=== PATIENT | female | born 1960 | race Two or more races ===

== ENCOUNTER 2016-04-24 21:57 | Emergency (ER) | payer BC, OTHER ==
[2016-04-24] MEDS ORDERED: ONDANSETRON 4 MG TAB.RAPDIS PO ONE (22:04)
--- NOTE | 2016-04-24 22:16 | ER Document Report ---
ED Medical Screen (RME) - General Stated Complaint: VOMITING Notes: dizziness with vomiting sudden onset this evening PMH: diabetes type 2, lantus 60u as well as PO medication I have greeted and performed a rapid initial assessment of this patient. A comprehensive ED assessment and evaluation of the patient, analysis of test results and completion of the medical decision making process will be conducted by additional ED providers. - Related Data Allergies/Adverse Reactions: No Known Allergies Allergy (Unverified 12/02/13 09:54) Past Medical History - Past Medical History Cardiac Medical History: Reports: Hx Hypertension - ON LISINOPRIL Denies: Hx Coronary Artery Disease, Hx Heart Attack Pulmonary Medical History: Denies: Hx Asthma, Hx Bronchitis, Hx COPD, Hx Pneumonia Neurological Medical History: Denies: Hx Cerebrovascular Accident, Hx Seizures Musculoskeltal Medical History: Denies Hx Arthritis - Immunizations Hx Diphtheria, Pertussis, Tetanus Vaccination: Yes
[2016-04-25 01:08] LABS: ABSOLUTE BASOPHILS # (AUTO) 0.1 10^3/uL (0.0-0.2); ABSOLUTE EOSINOPHILS # (AUTO) 0.1 10^3/uL (0.0-0.6); ABSOLUTE LYMPHOCYTES (AUTO) 2.2 10^3/uL (0.5-4.7); ABSOLUTE MONOCYTES (AUTO) 0.8 10^3/uL (0.1-1.4); ABSOLUTE NEUT (AUTO) 14.4 10^3/uL (1.7-8.2); BASOPHILS % (AUTO) 0.5 % (0-2); EOSINOPHILS % (AUTO) 0.6 % (0-6); HEMATOCRIT 45.8 % (36.0-47.0); HEMOGLOBIN 14.5 g/dL (12.0-15.5); HGB HCT DIFFERENCE -2.3; LYMPHOCYTES % (AUTO) 12.6 % (13-45); MEAN CORPUSCULAR HEMOGLOBIN 26.4 pg (27.0-33.4); MEAN CORPUSCULAR HGB CONC 31.7 g/dL (32.0-36.0); MEAN CORPUSCULAR VOLUME 83 fl (80-97); MONOCYTES % (AUTO) 4.6 % (3-13); RED CELL DISTRIBUTION WIDTH 12.9 % (11.5-14.0); SEGMENTED NEUTROPHILS % (AUTO) 81.7 % (42-78); WHITE BLOOD COUNT 17.7 10^3/uL (4.0-10.5)
[2016-04-25 01:19] LABS: ALANINE AMINOTRANSFERASE 61 U/L (9-52); ALBUMIN 3.5 g/dL (3.5-5.0); ALKALINE PHOSPHATASE 40 U/L (38-126); ANION GAP 15 (5-19); ASPARTATE AMINO TRANSFERASE 38 U/L (14-36); BILIRUBIN,TOTAL 0.3 mg/dL (0.2-1.3); BLOOD UREA NITROGEN 25 mg/dL (7-20); CALCIUM 9.8 mg/dL (8.4-10.2); CARBON DIOXIDE 24 mmol/L (22-30); CHLORIDE 103 mmol/L (98-107); CREATINE KINASE 170 U/L (30-135); CREATININE RESULT 0.72 mg/dL (0.52-1.25); GLUCOSE 234 mg/dL (75-110); POTASSIUM 3.9 mmol/L (3.6-5.0); SODIUM 142.2 mmol/L (137-145); TOTAL PROTEIN 6.4 g/dL (6.3-8.2)
[2016-04-25 01:24] LABS: APPEARANCE,URINE CLOUDY; BILIRUBIN,URINE NEGATIVE (NEGATIVE); GLUCOSE, URINE >=500 mg/dL (NEGATIVE); KETONES,URINE TRACE mg/dL (NEGATIVE); LEUKOCYTE ESTERASE,URINE MODERATE (NEGATIVE); NITRITE,URINE POSITIVE (NEGATIVE); PROTEIN,URINE 30 mg/dL (NEGATIVE); URINE SPECIFIC GRAVITY 1.027; UROBILINOGEN,URINE NEGATIVE mg/dL (<2.0)
[2016-04-25 01:37] LABS: TROPONIN I < 0.012 ng/mL
[2016-04-25] MEDS ORDERED: CEPHALEXIN 500 MG CAPSULE PO ONE (02:17)
--- NOTE | 2016-04-25 02:35 | ER Document Report ---
ED Dizziness/Weakness - General Mode of Arrival: Ambulatory Information source: Patient TRAVEL OUTSIDE OF THE [place] IN LAST 30 DAYS: No - HPI Patient complains to provider of: Dizziness Onset: Just prior to arrival Onset/Duration: Sudden Associated symptoms: Dizzy, Almost fainted, Lightheaded, Nausea, Sweating, Weak all over. denies: Chest pain, Diarrhea, Fainted, Short of breath, Vomiting <GILDARDO FRYE - Last Filed: 04/25/16 02:23> <CITLALLI LYNCH - Last Filed: 04/25/16 03:43> - General Chief Complaint: Dizziness Stated Complaint: VOMITING Notes: Patient is a 56-year-old female presenting to the emergency department concerned of dizziness just prior to arrival to the emergency department. Patient states when she got off work here at the [employer], she went home and ate dinner around 6 PM. Patient states after that she didn't eat because she had to take her insulin. Later on, patient states that she had approximately 3 boiled peanuts. Patient states that after this, she began sweating and became dizzy, weak, itchy, and nauseous. Patient denies vomiting, fever, syncope, diarrhea, cough, sore throat, dysuria/incontinence, congestion, shortness of breath, or any difficulty breathing. Patient has a history of hypertension and diabetes. Patient states that the fluids given to her via IV have helped. (GILDARDO FRYE) - Related Data Allergies/Adverse Reactions: No Known Allergies Allergy (Unverified 12/02/13 09:54) Past Medical History - General Information source: Patient - Social History Smoking Status: Unknown if Ever Smoked Occupation: [employer] Family History: Reviewed & Not Pertinent Patient has suicidal ideation: No Patient has homicidal ideation: No - Past Medical History Cardiac Medical History: Reports: Hx Hypertension - ON LISINOPRIL Endocrine Medical History: Reports: Hx Diabetes Mellitus Type 2 - Immunizations Hx Diphtheria, Pertussis, Tetanus Vaccination: Yes <GILDARDO FRYE - Last Filed: 04/25/16 02:23> Review of Systems - Review of Systems Constitutional: See HPI, Diaphoresis, Weakness. denies: Fever EENT: No symptoms reported. denies: Nose congestion, Throat pain Cardiovascular: See HPI, Dizziness, Lightheaded. denies: Chest pain, Syncope Respiratory: No symptoms reported. denies: Cough, Short of breath Gastrointestinal: No symptoms reported. denies: Abdominal pain, Diarrhea, Nausea, Vomiting Genitourinary: No symptoms reported. denies: Burning, Dysuria, Hematuria, Pain Female Genitourinary: No symptoms reported Musculoskeletal: No symptoms reported Skin: See HPI, Other - Itchy Hematologic/Lymphatic: No symptoms reported Neurological/Psychological: No symptoms reported -: Yes All other systems reviewed and negative <GILDARDO FRYE - Last Filed: 04/25/16 02:23> Physical Exam - Vital signs Interpretation: Hypertensive, Tachycardic - General General appearance: Appears well, Alert - HEENT Head: Normocephalic, Atraumatic Eyes: Normal Pupils: PERRL - Respiratory Respiratory status: No respiratory distress Chest status: Nontender Breath sounds: Normal Chest palpation: Normal - Cardiovascular Rhythm: Regular Heart sounds: Normal auscultation Murmur: No - Abdominal Inspection: Normal Distension: No distension Bowel sounds: Normal Tenderness: Nontender Organomegaly: No organomegaly - Back Back: Normal, Nontender - Extremities General upper extremity: Normal inspection, Nontender, Normal color, Normal ROM , Normal temperature General lower extremity: Normal inspection, Nontender, Normal color, Normal ROM , Normal temperature, Normal weight bearing - Neurological Neuro grossly intact: Yes Cognition: Normal Orientation: AAOx4 Carbon Coma Scale Eye Opening: Spontaneous Chavo Coma Scale Verbal: Oriented Carbon Coma Scale Motor: Obeys Commands Chavo Coma Scale Total: 15 Speech: Normal - Psychological Associated symptoms: Normal affect, Normal mood - Skin Skin Temperature: Warm Skin Moisture: Dry Skin Color: Normal <GILDARDO FRYE - Last Filed: 04/25/16 02:23> Course - Laboratory Result Diagrams: 04/25/16 00:54 04/25/16 00:54 <GILDARDO FRYE - Last Filed: 04/25/16 02:23> - Laboratory Result Diagrams: 04/25/16 00:54 04/25/16 00:54 <CITLALLI LYNCH - Last Filed: 04/25/16 03:43> - Re-evaluation Re-evalutation: 04/25/16 03:30 Medical decision making: Patient persists emergency department describing what could've been an allergic reaction home this evening. There is no shortness of breath, chest pain or difficulty breathing. There is no rash or hives over the patient did have lightheadedness and nausea, vomiting and itching. No fever. The symptoms resolved on arrival in the emergency department. Patient is currently asymptomatic. The labs indicate patient has urinary tract infection although she is asymptomatic. We will treat this as she is a diabetic. The patient's lipase was elevated. She denies h/oi pancreatitis or alcohol use. She has no abdominal pain. Her abdominal exam is unremarkable. She is tolerating by mouth's without any problems. I have explained this to her. She can have her labs redrawn by her primary physician to recheck this. She does have an elevated white count with left shift but this is likely to demargination secondary to the vomiting/episode. The patient did not check her glucose at the time of the reaction and it is possible that she had been a little hypoglycemic at the time of the reaction and incidentally was eating the peanuts when the reaction happened and she indicates she completely resolved within 30 minutes of eating the peanuts. We will recommend that she avoid peanuts in the future in the event this was an allergic reaction. Recommending that she take antibiotics as prescribed for the UTI as she is diabetic. I have encouraged her to regularly check her blood sugar especially while taking antibiotics for infection. I have asked her to follow up with her primary physician either tomorrow or the next day. Patient indicates she feels improved and is ready for discharge. Return precautions advised. 04/25/16 03:33 (CITLALLI LYNCH) - Vital Signs Vital signs: Temp Pulse Resp BP Pulse Ox 97.8 F 114 H 16 137/104 H 96 04/24/16 22:07 04/24/16 22:07 04/24/16 22:07 04/24/16 22:07 04/24/16 22:07 (GILDARDO FRYE) (CITLALLI LYNCH) - Laboratory Laboratory results interpreted by me: 04/24/16 04/25/16 04/25/16 22:15 00:54 00:54 WBC 17.7 H RBC 5.50 H MCH 26.4 L MCHC 31.7 L Seg Neutrophils % 81.7 H Lymphocytes % 12.6 L Absolute Neutrophils 14.4 H BUN 25 H Glucose 234 H POC Glucose 197 H AST 38 H ALT 61 H Creatine Kinase 170 H Lipase 605.0 H Urine Protein Urine Glucose (UA) Urine Ketones Urine Nitrite Ur Leukocyte Esterase Urine Ascorbic Acid 04/25/16 00:54 WBC RBC MCH MCHC Seg Neutrophils % Lymphocytes % Absolute Neutrophils BUN Glucose POC Glucose AST ALT Creatine Kinase Lipase Urine Protein 30 H Urine Glucose (UA) >=500 H Urine Ketones TRACE H Urine Nitrite POSITIVE H Ur Leukocyte Esterase MODERATE H Urine Ascorbic Acid 40 H (GILDARDO FRYE) (CITLALLI LYNCH) - EKG Interpretation by Me Additional EKG results interpreted by me: 04/25/16 03:42 EKG: Heart rate 93, normal sinus rhythm, normal axis, normal intervals, no ST elevations, as interpreted by me. Compared with EKG of 12/02/13, no significant change. (CITLALLI LYNCH) Discharge <GILDARDO FRYE - Last Filed: 04/25/16 02:23> <CITLALLI LYNCH - Last Filed: 04/25/16 03:43> - Discharge Clinical Impression: Allergic reaction Qualifiers: Encounter type: initial encounter Qualified Code(s): T78.40XA - Allergy, unspecified, initial encounter Urinary tract infection Qualifiers: Urinary tract infection type: site unspecified Hematuria presence: without hematuria Qualified Code(s): N39.0 - Urinary tract infection, site not specified Condition: Stable Disposition: HOME, SELF-CARE Instructions: Urinary Tract Infection, Child ([facility]) Additional Instructions: Drink plenty of fluids to stay well hydrated. Take antibiotics as prescribed for UTI. We suspect that you may have had an allergic reaction tonight yet on arrival in the emergency department your symptoms had resolved. Avoid boiled nuts as this appears to be what precipitated this reaction. Take Benadryl for any recurrent itching. Given that you have diabetes, it is important that you check a blood sugar frequently while you are taking antibiotics and being treated for infection. Alternate Tylenol and Motrin for fevers greater than 100.3. [place]. Return for chest pain, difficulty breathing, vomiting so not keep down fluids, fever not controlled by Tylenol or Motrin, or any other worsening or concerning symptoms. Prescriptions: Cephalexin Monohydrate [Keflex 500 mg Capsule] 500 mg PO Q6H 5 Days Scribe Attestation: 04/25/16 03:40 I personally performed the services described in the documentation, reviewed and edited the documentation which was dictated to the scribe in my presence, and it accurately records my words and actions. (CITLALLI LYNCH) Scribe Documentation <GILDARDO FRYE - Last Filed: 04/25/16 02:23> <CITLALLI LYNCH - Last Filed: 04/25/16 03:43> - Scribe Written by Scribe:: CITLALLI LYNCH MD, SCRIBE 04/25/16 0317 Acting as scribe for: Dr. Williamson (GILDARDO FRYE) (CITLALLI LYNCH)
[2016-04-25 04:17] VITALS: BP 108/77
--- NOTE | 2016-04-25 08:01 | EKG REPORT ---
SEVERITY:- ABNORMAL ECG - SINUS RHYTHM ABNRM R PROG, CONSIDER ASMI OR LEAD PLACEMENT : Confirmed by: Hernan Crystal MD 25-Apr-2016 08:01:22
== END 2016-04-25 04:15 | disposition home or self-care (01) ==
LOC: ER 21:57
DX: T78.40XA Allergy, unspecified, initial encounter (principal); N39.0 Urinary tract infection, site not specified; R61 Generalized hyperhidrosis; R53.1 Weakness; R11.10 Vomiting, unspecified; R42 Dizziness and giddiness; X58.XXXA Exposure to other specified factors, initial encounter; E11.9 Type 2 diabetes mellitus without complications; I10 Essential (primary) hypertension; Z79.4 Long term (current) use of insulin
CPT/HCPCS: 36415; 71010; 80053; 81001; 82550; 82553; 82962; 83690; 84484; 85025; 87086; 87088; 87186; 93005; 93010; 99284

== ENCOUNTER 2018-04-28 17:58 | Emergency (ER) | payer BC, OTHER ==
[2018-04-28] MEDS ORDERED: LOPERAMIDE HCL 2 MG CAPSULE PO ONE (18:39)
[2018-04-28] MEDS ORDERED: RINGERS SOLUTION,LACTATED 1,000 ML IV ONE (18:39)
[2018-04-28] MEDS ORDERED: ONDANSETRON HCL INJ/PF 4 MG/2 ML SDV IV ONE (18:39)
--- NOTE | 2018-04-28 18:43 | ER Document Report ---
ED General - General Chief Complaint: Dizziness Stated Complaint: DIARRHEA,DIZZINESS,ABDOMINAL PAIN Time Seen by Provider: 04/28/18 18:18 Notes: Patient is a 58-year-old female with a past medical history of diabetes who presents with approximately 12 hours of nausea, vomiting, diarrhea and abdominal cramping. States that her symptoms started relatively abruptly and have been ongoing since that time. States that she has been unable to tolerate oral intake since the onset of her symptoms. Nothing has improved or worsened her symptoms since onset. Multiple sick contacts. No history of similar symptoms in the recent past. Has not seen her general physician regarding today's concerns. Has not had fever or constitutional symptoms. Patient states that she became concerned today when she was becoming lightheaded while going from a sitting to standing position. This prompted her to come to the emergency department. TRAVEL OUTSIDE OF THE [place] IN LAST 30 DAYS: No - Related Data Allergies/Adverse Reactions: No Known Allergies Allergy (Unverified 12/02/13 09:54) Past Medical History - General Information source: Patient - Social History Smoking Status: Never Smoker Chew tobacco use (# tins/day): No Frequency of alcohol use: None Drug Abuse: None Lives with: Family Family History: Reviewed & Not Pertinent Patient has suicidal ideation: No Patient has homicidal ideation: No - Past Medical History Cardiac Medical History: Reports: Hx Hypercholesterolemia - On Lipitor, Hx Hypertension - ON LISINOPRIL Denies: Hx Coronary Artery Disease, Hx Heart Attack Pulmonary Medical History: Denies: Hx Asthma, Hx Bronchitis, Hx COPD, Hx Pneumonia Neurological Medical History: Denies: Hx Cerebrovascular Accident, Hx Seizures Endocrine Medical History: Reports: Hx Diabetes Mellitus Type 2 - on Janumet and Lantis 64unit daily IM Renal/ Medical History: Denies: Hx Peritoneal Dialysis Musculoskeletal Medical History: Denies Hx Arthritis - Immunizations Hx Diphtheria, Pertussis, Tetanus Vaccination: Yes Review of Systems - Review of Systems Notes: Constitutional: Negative for fever. HENT: Negative for sore throat. Eyes: Negative for visual changes. Cardiovascular: Negative for chest pain. Respiratory: Negative for shortness of breath. Gastrointestinal: Positive for abdominal cramping, vomiting and diarrhea Genitourinary: Negative for dysuria. Musculoskeletal: Negative for back pain. Skin: Negative for rash. Neurological: Negative for headaches, weakness or numbness. 10 point ROS negative except as marked above and in HPI. Physical Exam - Vital signs Vitals: Temp Pulse Resp BP Pulse Ox 98.8 F 103 H 16 155/84 H 96 04/28/18 18:08 04/28/18 18:08 04/28/18 18:08 04/28/18 18:08 04/28/18 18:08 Interpretation: Tachycardic Notes: PHYSICAL EXAMINATION: GENERAL: Well-appearing, well-nourished and in no acute distress. HEAD: Atraumatic, normocephalic. EYES: Pupils equal round and reactive to light, extraocular movements intact, sclera anicteric, conjunctiva are normal. ENT: nares patent, oropharynx clear without exudates. Dry mucous membranes. NECK: Normal range of motion, supple without lymphadenopathy LUNGS: Breath sounds clear to auscultation bilaterally and equal. No wheezes rales or rhonchi. HEART: Regular rate and rhythm without murmurs ABDOMEN: Soft, nontender, normoactive bowel sounds. No guarding, no rebound. No masses appreciated. EXTREMITIES: Normal range of motion, no pitting or edema. No cyanosis. NEUROLOGICAL: No focal neurological deficits. Moves all extremities spontaneously and on command. PSYCH: Normal mood, normal affect. SKIN: Warm, Dry, normal turgor, no rashes or lesions noted. Course - Re-evaluation Re-evalutation: 04/28/18 18:41 Presentation of an overall well-appearing patient in no acute distress with complaints of nausea, vomiting, diarrhea. This is consistent with likely viral gastroenteritis. Patient has no abdominal tenderness on exam and specifically no tenderness in the RLQ, LLQ, RUQ. Overall well hydrated on exam. Able to tolerate oral intake here in the emergency department. Low clinical suspicion for any acute life-threatening etiology based on exam and history including acute cholecystitis, SBO, appendicitis, nephrolithiasis, or pylonephritis. CMP without evidence of acute hepatitis or significant dehydration. At this time will discharge with return precautions and follow-up recommendations. Verbal discharge instructions given a the bedside and opportunity for questions given. Medication warnings reviewed. Patient is in agreement with this plan and has verbalized understanding of return precautions and the need for primary care follow-up in the next 24-72 hours. - Vital Signs Vital signs: Temp Pulse Resp BP Pulse Ox 98.5 F 88 16 163/79 H 96 04/28/18 20:38 04/28/18 20:38 04/28/18 18:08 04/28/18 20:38 04/28/18 20:38 - Laboratory Result Diagrams: 04/28/18 19:11 04/28/18 19:11 Laboratory results interpreted by me: 04/28/18 04/28/18 04/28/18 18:03 19:11 19:11 RBC 5.88 H Hgb 15.8 H Hct 47.4 H MCH 26.9 L Seg Neutrophils % 81.6 H Lymphocytes % 10.3 L Glucose 176 H POC Glucose 181 H Calcium 10.8 H AST 43 H Total Protein 8.3 H Discharge - Discharge Clinical Impression: Lightheadedness, Dehydration, Nausea vomiting and diarrhea Condition: Good Disposition: HOME, SELF-CARE Additional Instructions: Your symptoms are likely due to a viral illness and should resolve in the next several days. You can take [id number] loperamide also known as Imodium as needed for diarrhea per box instructions. Continue to stay hydrated with plenty of solution such as Gatorade or Pedialyte. You are being prescribed Zofran to take as needed for nausea and vomiting. Please return if you develop severe abdominal pain, pass out, become unable to tolerate any oral fluids for 12 more hours, or any other symptoms that are concerning to you. Referrals: ARISTEO GANDHI, [Primary Care Provider] - Follow up as needed
[2018-04-28 19:25] LABS: ABSOLUTE EOSINOPHILS # (AUTO) 0.2 10^3/uL (0.0-0.6); ABSOLUTE LYMPHOCYTES (AUTO) 0.9 10^3/uL (0.5-4.7); ABSOLUTE MONOCYTES (AUTO) 0.5 10^3/uL (0.1-1.4); ABSOLUTE NEUT (AUTO) 7.1 10^3/uL (1.7-8.2); BASOPHILS % (AUTO) 0.5 % (0-2); EOSINOPHILS % (AUTO) 1.8 % (0-6); HEMATOCRIT 47.4 % (36.0-47.0); HEMOGLOBIN 15.8 g/dL (12.0-15.5); LYMPHOCYTES % (AUTO) 10.3 % (13-45); MEAN CORPUSCULAR HEMOGLOBIN 26.9 pg (27.0-33.4); MEAN CORPUSCULAR HGB CONC 33.4 g/dL (32.0-36.0); MEAN CORPUSCULAR VOLUME 81 fl (80-97); MONOCYTES % (AUTO) 5.8 % (3-13); PLATELET COUNT 284 10^3/uL (150-450); RED BLOOD COUNT 5.88 10^6/uL (3.72-5.28); RED CELL DISTRIBUTION WIDTH 13.8 % (11.5-14.0); SEGMENTED NEUTROPHILS % (AUTO) 81.6 % (42-78); TOTAL CELLS COUNTED % (AUTO) 100 %; WHITE BLOOD COUNT 8.7 10^3/uL (4.0-10.5)
[2018-04-28 19:36] LABS: ALANINE AMINOTRANSFERASE 49 U/L (9-52); ALBUMIN 4.9 g/dL (3.5-5.0); ALKALINE PHOSPHATASE 68 U/L (38-126); ANION GAP 11 (5-19); ASPARTATE AMINO TRANSFERASE 43 U/L (14-36); BILIRUBIN,DIRECT 0.1 mg/dL (0.0-0.4); BILIRUBIN,TOTAL 0.4 mg/dL (0.2-1.3); BLOOD UREA NITROGEN 15 mg/dL (7-20); CALCIUM 10.8 mg/dL (8.4-10.2); CARBON DIOXIDE 26 mmol/L (22-30); CHLORIDE 103 mmol/L (98-107); GLUCOSE 176 mg/dL (75-110); POTASSIUM 4.5 mmol/L (3.6-5.0); SODIUM 139.7 mmol/L (137-145); TOTAL PROTEIN 8.3 g/dL (6.3-8.2)
[2018-04-28] MEDS ORDERED: ONDANSETRON ODT 4 MG TAB (6 TAB/ER DISP) PO PRN (20:45)
[2018-04-28 20:50] VITALS: BP 163/79
--- NOTE | 2018-04-28 23:53 | EKG REPORT ---
SEVERITY:- ABNORMAL ECG - SINUS RHYTHM ABNRM R PROG, CONSIDER ASMI OR LEAD PLACEMENT : Confirmed by: Gelacio Ordonez 28-Apr-2018 23:53:00
== END 2018-04-28 20:51 | disposition home or self-care (01) ==
LOC: ER 17:58
DX: R11.2 Nausea with vomiting, unspecified (principal); E86.0 Dehydration; R42 Dizziness and giddiness; R19.7 Diarrhea, unspecified; E11.9 Type 2 diabetes mellitus without complications; I10 Essential (primary) hypertension; R10.9 Unspecified abdominal pain
CPT/HCPCS: 93005; 99284; 96361; 96374; 36415; 82962; 85025; 80053; 84484; 93010; J2405; J7120

== ENCOUNTER 2019-03-03 11:09 | Emergency (ER) | payer BC, OTHER ==
--- NOTE | 2019-03-03 11:29 | ER Document Report ---
ED Medical Screen (RME) - General Chief Complaint: Flu Symptoms Stated Complaint: FLU LIKE SYMPTOMS Time Seen by Provider: 03/03/19 11:23 Primary Care Provider: ARISTEO GANDHI DO [Primary Care Provider] - Follow up as needed Mode of Arrival: Ambulatory Information source: Patient Notes: 59-year-old female presented to ED for complaint of cough cold congestion fever and chills and body aches. She is afebrile at this time vital signs are normal limits blood pressure is 155/88 she is on blood pressure medicines. She also has is history of diabetes cholesterol reflux PTSD and insomnia. TRAVEL OUTSIDE OF THE [place] IN LAST 30 DAYS: No - HPI Onset: Other - Days Severity: Mild Pain Level: 1 Associated Symptoms: Body/muscle aches, Chills, Cough (productive), Fever, Rhinorrhea, Sinus pain/drainage Exacerbated by: Denies Relieved by: Denies Similar symptoms previously: Yes Recently seen / treated by doctor: Yes - Related Data Smoking: Non-smoker Frequency of alcohol use: None Drug Abuse: None Allergies/Adverse Reactions: No Known Allergies Allergy (Unverified 12/02/13 09:54) Past Medical History - General Information source: Patient - Social History Cigarette use (# per day): No Chew tobacco use (# tins/day): No Frequency of alcohol use: None Drug Abuse: None Occupation: Dietary Lives with: Family Family history: Reviewed & Not Pertinent - Past Medical History Cardiac Medical History: Reports: Hx Hypercholesterolemia - On Lipitor, Hx Hypertension - ON LISINOPRIL Pulmonary Medical History: Reports: None EENT Medical History: Reports: None Endocrine Medical History: Reports: Hx Diabetes Mellitus Type 2 - on Janumet and Lantis 64unit daily IM Renal/ Medical History: Reports: None Malignancy Medical History: Reports: None GI Medical History: Reports: Hx Gastroesophageal Reflux Disease Musculoskeltal Medical History: Reports None Skin Medical History: Reports None Psychiatric Medical History: Reports: None Traumatic Medical History: Reports: None Infectious Medical History: Reports: None Surgical Hx: Negative Past Surgical History: Reports: None - Immunizations Hx Diphtheria, Pertussis, Tetanus Vaccination: Yes Review of Systems - Review of Systems Constitutional: Chills, Fever, Recent illness EENT: Nose discharge, Sinus discharge Cardiovascular: No symptoms reported Respiratory: Cough Gastrointestinal: No symptoms reported Genitourinary: No symptoms reported Female Genitourinary: No symptoms reported Musculoskeletal: No symptoms reported Skin: No symptoms reported Hematologic/Lymphatic: No symptoms reported Neurological/Psychological: No symptoms reported -: Yes All other systems reviewed and negative Physical Exam - Vital signs Vitals: Temp Pulse Resp BP Pulse Ox 98.3 F 95 18 155/88 H 97 03/03/19 11:13 03/03/19 11:13 03/03/19 11:13 03/03/19 11:13 03/03/19 11:13 Interpretation: Normal - Notes Notes: Patient complains of body aches all over no one tender area no injury - General General appearance: Appears well, Alert - HEENT Head: Normocephalic, Atraumatic Eyes: Normal Pupils: PERRL Ears: Normal External canal: Normal Tympanic membrane: Normal Sinus: Normal Nasal: Purulent discharge, Swelling Mouth/Lips: Normal Mucous membranes: Normal Pharynx: Post nasal drainage Neck: Normal - Respiratory Respiratory status: No respiratory distress Chest status: Nontender Breath sounds: Nonproductive cough. No: Productive cough, Rales, Rhonchi, Stridor Chest palpation: Normal - Cardiovascular Rhythm: Regular Heart sounds: Normal auscultation Murmur: No - Abdominal Inspection: Normal Distension: No distension Bowel sounds: Normal Tenderness: Nontender Organomegaly: No organomegaly - Back Back: Normal, Nontender - Extremities General upper extremity: Normal inspection, Nontender, Normal color, Normal ROM, Normal temperature General lower extremity: Normal inspection, Nontender, Normal color, Normal ROM, Normal temperature, Normal weight bearing. No: Devika's sign - Neurological Neuro grossly intact: Yes Cognition: Normal Orientation: AAOx4 [place] Coma Scale Eye Opening: Spontaneous [place] Coma Scale Verbal: Oriented [place] Coma Scale Motor: Obeys Commands [place] Coma Scale Total: 15 Speech: Normal Motor strength normal: LUE, RUE, LLE, RLE Sensory: Normal - Psychological Associated symptoms: Normal affect, Normal mood - Skin Skin Temperature: Warm Skin Moisture: Dry Skin Color: Normal Course - Re-evaluation Re-evalutation: 03/03/19 20:57 After performing a Medical Screening Examination, I estimate there is LOW risk for ACUTE CORONARY SYNDROME, RESPIRATORY FAILURE, SEPSIS OR MENINGITIS, thus I consider the discharge disposition reasonable. I have reevaluated this patient multiple times and no significant life threatening changes are noted. The patient and I have discussed the diagnosis and risks, and we agree with discharg ing home with close follow-up. We also discussed returning to the Emergency Department immediately if new or worsening symptoms occur. We have discussed the symptoms which are most concerning (e.g., changing or worsening pain, trouble swallowing or breathing, neck stiffness, fever) that necessitate immediate return. - Vital Signs Vital signs: Temp Pulse Resp BP Pulse Ox 98.7 F 100 16 166/84 H 98 03/03/19 12:38 03/03/19 12:38 03/03/19 12:38 03/03/19 12:38 03/03/19 12:38 - Diagnostic Test Radiology reviewed: Image reviewed, Reports reviewed Doctor's Discharge - Discharge Clinical Impression: URI (upper respiratory infection) Qualifiers: URI type: unspecified viral URI Qualified Code(s): J06.9 - Acute upper respiratory infection, unspecified Condition: Stable Disposition: HOME, SELF-CARE Additional Instructions: UPPER RESPIRATORY ILLNESS: You have a viral infection of the respiratory passages -- a "cold." This common infection causes nasal congestion, drainage, and often sore throat and cough. It is highly contagious. The disease usually lasts about 10 to 14 days. There is no "cure" for the viral infection -- it must run its course. If there is a complication, such as bacterial infection in the nose, sinuses, middle ear, or bronchial tubes, antibiotics may be required. The antibiotics won't affect the virus. Drink plenty of fluids. A humidifier may help. An expectorant medication or decongestant may make you more comfortable. Use acetaminophen or ibuprofen for fever or aches. See the doctor if fever persists over two days, if there is any significant worsening of your symptoms, or if you simply fail to improve as expected. Please use Coricidin HP for your cough cold congestion symptoms your flu test and your chest x-ray are both negative. COUGH-SUPPRESSANT & EXPECTORANT MEDICATION: You are to use a cough medication as needed for relief of symptoms. This medicine is a combination of an expectorant (to make the mucous thinner and more easily "coughed up") and a cough suppressant (to reduce the frequency of coughing). The cough-suppressant medicine is related to narcotics. You may experience mild nausea and sleepiness. Some patients who are very sensitive to narcotics may have stomach pain from this medicine. Taking the medicine with food reduces these side effects. Do not drive or work with machinery until you know how this medicine affects you. The expectorant should have no side effects. Iodine-containing expe ctorants (such as organidin) should not be taken by persons with active thyroid disease unless approved by your doctor. Call the doctor if you develop shortness of breath, hives, rash, itching, l ightheadedness, or severe nausea and vomiting. USE OF ACETAMINOPHEN (Tylenol): Acetaminophen may be taken for pain relief or fever control. It's much safer than aspirin, offering a wider range of "safe" dosages. It is safe during . Some brand names are Tylenol, Panadol, Datril, Anacin 3, Tempra, and Liquiprin. Acetaminophen can be repeated every four hours. The following are maximum recommended dosages: >89 pounds or adults 650 mg to 900 mg Acetaminophen can be repeated every four hours. Maximum dose not to exceed 4000 mg a day. FOLLOW-UP CARE: If you have been referred to a physician for follow-up care, call the physicians office for an appointment as you were instructed or within the next two days. If you experience worsening or a significant change in your symptoms, notify the physician immediately or return to the Emergency Department at any time for re-evaluation. Forms: Elevated Blood Pressure Referrals: ARISTEO GANDHI, [Primary Care Provider] - Follow up as needed
[2019-03-03 12:11] LABS: A TYPE INFLUENZA AG NEGATIVE (NEGATIVE); B INFLUENZA AG NEGATIVE (NEGATIVE)
--- NOTE | 2019-03-03 12:11 | RADIOLOGY REPORT (SQ) ---
EXAM DESCRIPTION: CHEST 2 VIEWS COMPLETED DATE/TIME: 03/03/2019 12:01 pm REASON FOR STUDY: cough COMPARISON: 04/25/2016. EXAM PARAMETERS: NUMBER OF VIEWS: two views TECHNIQUE: Digital Frontal and Lateral radiographic views of the chest acquired. RADIATION DOSE: NA LIMITATIONS: none FINDINGS: LUNGS AND PLEURA: No opacities, masses or pneumothorax. No pleural effusion. MEDIASTINUM AND HILAR STRUCTURES: No masses or contour abnormalities. HEART AND VASCULAR STRUCTURES: Heart normal size. No evidence for failure. BONES: No acute findings. Changes in spine. HARDWARE: None in the chest. OTHER: No other significant finding. IMPRESSION: NO ACUTE RADIOGRAPHIC FINDING IN THE CHEST. TECHNICAL DOCUMENTATION: JOB ID: [id number] [employer]- All Rights Reserved Reading location - IP/workstation name: [email or web address]
[2019-03-03 12:39] VITALS: BP 166/84
== END 2019-03-03 12:35 | disposition home or self-care (01) ==
LOC: ER 11:09
DX: J06.9 Acute upper respiratory infection, unspecified (principal); B97.89 Other viral agents as the cause of diseases classified elsewhere; R05 Cough; R50.9 Fever, unspecified; J34.89 Other specified disorders of nose and nasal sinuses; M79.10 Myalgia, unspecified site; R09.82 Postnasal drip; E11.9 Type 2 diabetes mellitus without complications; Z79.899 Other long term (current) drug therapy
CPT/HCPCS: 71046; 87804; 99283